=== PATIENT | female | born 1965 ===

== ENCOUNTER 2016-11-14 23:56 | Emergency (ER) | payer SELFPAY ==
[2016-11-15] MEDS ORDERED: IBUPROFEN 800 MG TABLET ONE (01:35)
[2016-11-15] MEDS ORDERED: HYDROCODONE/ACETAMINOPHEN 5/325MG TABLET ONE (02:46)
--- NOTE | 2016-11-15 06:20 | RAD ---
CHEST - 2 VIEWS COMPARISON: None. HISTORY: Fever and cough. FINDINGS: Views: Frontal and lateral chest Lungs: Normal Heart and vessels: Normal Trachea and bronchi: Normal Mediastinum and jennifer: Normal Costophrenic sulci: Normal Chest wall and bones: Normal. Upper abdomen: Normal. IMPRESSION: Negative 2 view chest.
== END 2016-11-15 02:55 | disposition home or self-care (01) ==
LOC: ED 23:56
DX: B34.9 Viral infection, unspecified (principal); E03.9 Hypothyroidism, unspecified; E66.9 Obesity, unspecified
CPT/HCPCS: 71020; 87804; 99283 ×2; A9270 ×2